=== PATIENT | female | born 1960 | race Caucasian/White ===

== ENCOUNTER 2018-12-23 10:26 | Emergency (ER) | payer MEDICAID, MEDICARE ==
[~2018-12-23] VITALS: Ht 182.9 cm; Wt 59.0 kg
[~2018-12-23 10:26] MED LIST: PANT20TA3 PO
[2018-12-23] MEDS ORDERED: LORazepam 2 mg/ml vial IV ONE ×3 (11:05→13:55)
[2018-12-23] MEDS ORDERED: normal saline 1000ml 1,000 ML IV ONE (11:05)
[2018-12-23 11:07] LABS: BASOPHILS % (AUTO) 0.6 % (0-1); EOSINOPHILS % (AUTO) 0.1 % (0-6); HEMATOCRIT 40.8 % (35.0-45.0); HEMOGLOBIN 13.8 g/dl (12.0-16.0); LYMPHOCYTES # (AUTO) 1.3 X10'3 (1.1-4.8); LYMPHOCYTES % (AUTO) 21.9 % (21-51); MEAN CORPUSCULAR HEMOGLOBIN 30.5 PG (27.0-31.0); MEAN CORPUSCULAR HGB CONC 33.9 g/dL (33.0-36.5); MEAN CORPUSCULAR VOLUME 90.2 FL (78-98); MEAN PLATELET VOLUME 8.3 FL (7.4-10.4); MONOCYTES # (AUTO) 0.5 X10'3 (0-0.9); NEUTROPHILS # (AUTO) 4.2 X10'3 (1.8-7.7); NEUTROPHILS % (AUTO) 69.4 % (42-75); PLATELET COUNT 188 X10'3 (140-440); RED BLOOD COUNT 4.53 X10'6 (4.20-5.60); RED CELL DISTRIBUTION WIDTH 15.6 % (11.5-14.5)
[2018-12-23 11:17] LABS: PROTHROMBIN TIME 9.5 SECONDS (9.0-12.0)
[2018-12-23 11:18] LABS: INR 0.9 INR; PARTIAL THROMBOPLASTIN TIME 26 SECONDS (22-32)
[2018-12-23 11:20] LABS: ALANINE AMINOTRANSFERASE 61 U/L (12-78); ALBUMIN 3.6 G/DL (3.4-5.0); ALKALINE PHOSPHATASE 113 IU/L (46-116); ANION GAP 12 (8-16); ASPARTATE AMINO TRANSFERASE 83 U/L (10-37); BILIRUBIN,TOTAL 0.5 MG/DL (0.1-1.0); BLOOD UREA NITROGEN 13 MG/DL (7-18); BUN/CREATININE RATIO 17.3 (6.6-38.0); CHLORIDE 100 MMOL/L (99-107); CREATININE 0.75 MG/DL (0.40-0.90); GLUCOSE 88 MG/DL (70-104); SODIUM 138 MMOL/L (135-145); TOTAL CARBON DIOXIDE 26.4 MMOL/L (24-32); TOTAL PROTEIN 7.3 G/DL (6.4-8.2); eGFR 79 ML/MIN
[2018-12-23] MEDS ORDERED: potassium 10mEq/100ml NS w/LIDOcaine (10mg/bag) IV ONE (11:35)
[2018-12-23] MEDS ORDERED: magnesium 2GM in 50ml NS 50 ML IV ONE (11:35)
[2018-12-23] MEDS ORDERED: potassium Cl 20 mEq SR tablet PO STA (11:37)
[2018-12-23] MEDS ORDERED: ondansetron/PF 4mg/2ml inj IV ONE (11:40)
--- NOTE | 2018-12-23 12:01 | NUR ---
Call to pharmacy at this time, stated they will re-stock potassium with lidocaine (see emar).
--- NOTE | 2018-12-23 12:25 | NUR ---
pat iv potassium and magnesium started as per md orders checked the compatability ,its compatable.
[2018-12-23] MEDS ORDERED: iohexol 350MG/ML 100ml bottle IV ONE (12:34)
--- NOTE | 2018-12-23 12:54 | NUR ---
NOTIFIED DR OLGUIN THAT PAT VOMITITED THE 2 POTASSIUM TAB WHICH EVER ORDERED FOR HER ALSO INFORMED THAT PAT REQUESTED FOR ATIVAN , SAID HE WILL ATIVAN FOR HER WILL FOLLOW THE ORDERS.
[2018-12-23] MEDS ORDERED: POTA20TA19 PO (13:54)
[2018-12-23 14:53] VITALS: BP 149/89
== END 2018-12-23 14:57 | disposition home or self-care (01) ==
LOC: ER 10:26
DX: R07.89 Other chest pain (principal); G89.29 Other chronic pain; I10 Essential (primary) hypertension; Z90.710 Acquired absence of both cervix and uterus; Z98.890 Other specified postprocedural states; Z88.0 Allergy status to penicillin; Z91.040 Latex allergy status; Z79.899 Other long term (current) drug therapy
CPT/HCPCS: 36415; 71045; 71275; 80053; 84484; 85025; 85379; 85610; 85730; 93005; 96365; 96375; 96376; 99284; J2060; J2405; J3475; J3480; J7030; Q9967

== ENCOUNTER 2018-12-29 18:15 | Emergency (ER) | payer MEDICARE ==
[~2018-12-29] VITALS: Ht 182.9 cm; Wt 62.2 kg
[~2018-12-29 18:15] MED LIST changes: +POTA20TA19 PO
[2018-12-29 19:30] LABS: BASOPHILS % (AUTO) 0.3 % (0-1); EOSINOPHILS % (AUTO) 0 % (0-6); HEMATOCRIT 42.6 % (35.0-45.0); HEMOGLOBIN 14.4 g/dl (12.0-16.0); LYMPHOCYTES # (AUTO) 0.9 X10'3 (1.1-4.8); LYMPHOCYTES % (AUTO) 10.5 % (21-51); MEAN CORPUSCULAR HEMOGLOBIN 30.8 PG (27.0-31.0); MEAN CORPUSCULAR HGB CONC 33.8 g/dL (33.0-36.5); MEAN CORPUSCULAR VOLUME 91.2 FL (78-98); MEAN PLATELET VOLUME 8.5 FL (7.4-10.4); MONOCYTES # (AUTO) 0.7 X10'3 (0-0.9); MONOCYTES % (AUTO) 7.7 % (2-12); NEUTROPHILS # (AUTO) 7.2 X10'3 (1.8-7.7); NEUTROPHILS % (AUTO) 81.5 % (42-75); PLATELET COUNT 156 X10'3 (140-440); RED BLOOD COUNT 4.67 X10'6 (4.20-5.60); RED CELL DISTRIBUTION WIDTH 15.7 % (11.5-14.5); WHITE BLOOD COUNT 8.8 X10'3 (4.5-11.0)
[2018-12-29 19:44] LABS: ALANINE AMINOTRANSFERASE 156 U/L (12-78); ALBUMIN 3.8 G/DL (3.4-5.0); ALKALINE PHOSPHATASE 127 IU/L (46-116); ANION GAP 13 (8-16); ASPARTATE AMINO TRANSFERASE 277 U/L (10-37); BILIRUBIN,TOTAL 0.3 MG/DL (0.1-1.0); BLOOD UREA NITROGEN 14 MG/DL (7-18); BUN/CREATININE RATIO 19.2 (6.6-38.0); CALCIUM 8.5 MG/DL (8.5-10.1); CHLORIDE 104 MMOL/L (99-107); CREATININE 0.73 MG/DL (0.40-0.90); ETHANOL 0.241 GM/DL (0.0-0.010); GLUCOSE 116 MG/DL (70-104); POTASSIUM 3.7 MMOL/L (3.5-5.1); SODIUM 141 MMOL/L (135-145); TOTAL CARBON DIOXIDE 23.8 MMOL/L (24-32); TOTAL PROTEIN 7.8 G/DL (6.4-8.2); eGFR 82 ML/MIN
[2018-12-29] MEDS ORDERED: chlordiazePOXIDE 25mg capsule PO ONE ×2 (21:25→22:50)
--- NOTE | 2018-12-29 22:16 | NUR ---
Discussed pt's nausea and continued anxiety with ALEX Berger; new orders received.
[2018-12-29] MEDS ORDERED: diphenhydrAMINE 50 mg/ml inj IM ONE (22:20)
[2018-12-29] MEDS ORDERED: proCHLORperazine 10 MG/2 ml inj IM ONE (22:20)
[2018-12-29] MEDS ORDERED: CHLO25CA10 PO (22:49)
[2018-12-29] MEDS ORDERED: ONDA4TAB6 PO (23:54)
[2018-12-29] MEDS ORDERED: ondansetron 4mg rapidly disintigrating tab PO ONE (23:55)
[2018-12-30] MEDS ORDERED: phenobarbital sod 130mg/ml inj. IV ONE (00:10)
--- NOTE | 2018-12-30 00:55 | NUR ---
assisted to bathroom; pt returned readily to bed
[2018-12-30] MEDS ORDERED: cloNIDine 0.1 mg tablet PO ONE (01:35)
[2018-12-30] MEDS ORDERED: metoclopramide 5 mg/ml inj IV ONE (01:45)
[2018-12-30 03:07] VITALS: BP 95/55
[2018-12-30] MEDS ORDERED: phenobarbital inj 130 MG in normal saline 100ml IV soln 99 ML IV SCH (08:00)
== END 2018-12-30 03:11 | disposition home or self-care (01) ==
LOC: ER 18:17
DX: F10.231 Alcohol dependence with withdrawal delirium (principal); I10 Essential (primary) hypertension; G89.29 Other chronic pain; Z90.710 Acquired absence of both cervix and uterus; Z98.890 Other specified postprocedural states; Z88.0 Allergy status to penicillin; Y90.9 Presence of alcohol in blood, level not specified; Z91.040 Latex allergy status; Z79.899 Other long term (current) drug therapy
CPT/HCPCS: 36415; 71046; 80053; 80320; 85025; 96372; 96374; 96375; 99284; J0780; J1200; J2560; J2765; 93005